=== PATIENT | female | born 1990 | race Caucasian/White ===

== ENCOUNTER 2017-12-23 09:24 | Day surgery (SDC) | payer BC ==
[2017-12-19 12:17] VITALS: BMI 25.0
[2017-12-23] MEDS ORDERED: LIDOCAINE HCL/PF 2% SDV 5ML VIAL ONE (10:51)
[2017-12-23] MEDS ORDERED: KETOROLAC TROMETHAMINE 30 MG/1 ML VIAL ONE (10:51)
[2017-12-23] MEDS ORDERED: MIDAZOLAM HCL 2 MG/2 ML SINGLE DOSE VIAL ONE (10:51)
[2017-12-23] MEDS ORDERED: PROPOFOL 20 ML ONE ×2 (10:51)
[2017-12-23] MEDS ORDERED: ACETAMINOPHEN 1000 MG/100 ML VIAL (NON FORMULARY) IVPB ONE (11:00)
[2017-12-23] MEDS ORDERED: oxyCODONE HCL 5 MG TABLET PO PRN ×2 (11:00→12:34)
[2017-12-23] MEDS ORDERED: LACTATED RINGERS SOLUTION 1,000 ML IV SCH (11:00)
[2017-12-23] MEDS ORDERED: ONDANSETRON 4 MG/2 ML VIAL IVPUSH PRN ×2 (11:00→12:34)
[2017-12-23] MEDS ORDERED: DEXAMETHASONE SOD PHOSPHATE 4 MG/1 ML VIAL ONE (11:38)
[2017-12-23] MEDS ORDERED: ceFAZolin SODIUM 1 GM VIAL ONE (12:13)
[2017-12-23] MEDS ORDERED: ceFAZolin SODIUM 1 GM VIAL IVPB ONE (12:16)
--- NOTE | 2017-12-23 12:29 | HP ---
History & Physical Update - History History: No Change - Physical Physical: No Change - Assessment Assessment: No Change - Plan Plan: No Change (Consent signed and witnessed)
[2017-12-23] MEDS ORDERED: IBUPROFEN 600 MG TABLET (FP) PO PRN (12:34)
[2017-12-23] MEDS ORDERED: IBUPROFEN 800 MG/8 ML IJ IVPB PRN (12:34)
--- NOTE | 2017-12-23 12:34 | OP ---
Operative Note - Note: Operative Date: 12/23/17 Pre-Operative Diagnosis: 27yo P0 with Menometrorrhagia, uterine polyp Operation: Hysteroscopy, Polypectomy, D&C Findings: 1.2cm anterior wall polyp 2.Several small posterior wall polyps Post-Operative Diagnosis: Other (multipile endometrial polyps) Surgeon: Mirna Haney Anesthesiologist/DOOR FURRING INSTALLER: Briseida López Specimens Removed: 1. Multiple endometrial polyps. 2. Urine sent for UA culture Estimated Blood Loss (mls): 10 Instrument used (Debridements only): TruClear insizer Drains & Tubes with Location: 990 cc Fluid defficit Drains, Volume Out (mls): 50 (Urine sent for culture) Fluid Volume Replaced (mls): 500 Operative Report Dictated: Yes
[2017-12-23] MEDS ORDERED: ELECTROLYTE-148 SOLN 1,000 ML IV SCH (12:45)
[2017-12-23] MEDS ORDERED: ACETAMINOPHEN INJECTION 100 ML IVPB ONE (12:55)
[2017-12-23 14:25] VITALS: TEMP 97.8
[2017-12-23 14:47] VITALS: BP 114/75; PULSE 60
--- NOTE | 2017-12-24 08:17 | OP ---
DATE OF OPERATION: 12/23/2017 PREOPERATIVE DIAGNOSIS: A 27-year-old para 0 with menometrorrhagia and uterine polyp on the sonogram. POSTOPERATIVE DIAGNOSES: A 27-year-old para 0 with menometrorrhagia and uterine polyp on the sonogram plus multiple endometrial polyps. OPERATION: Hysteroscopy, multiple polypectomy and gentle dilatation and curettage. FINDINGS: A 2-cm anterior wall polyp and second several small posterior wall polyps. SURGEON: Lissa Sandhu MD ANESTHESIOLOGIST: Briseida López MD ANESTHESIA: MAC. SPECIMENS REMOVED: Multiple endometrial polyps and urine sent for urine culture. DESCRIPTION OF THE OPERATIVE PROCEDURE: After assuring informed consent, patient was brought to the operating room where she was placed in dorsal lithotomy position. Perineum was prepped and draped in sterile fashion. Urine 50 mL was drained, found to be cloudy and odorous and was sent for urine culture. The TRUCLEAR hysteroscope, 5 mm, was calibrated and white balanced and primed. The anterior lip of the cervix was visualized by using Coon retractors and grasped with single-tooth tenaculum. Cervix was dilated without any difficulty with gradually increasing in size DeLee dilators up to the gauge 19. A 5-mm hysteroscope was introduced into the uterus. The lower uterine segment anterior wall 2-cm polyp, irregularly shaped, was visualized and posterior wall several smaller polyps were visualized as well. The TRUCLEAR smallest resectoscope device was introduced through the port and the calibrated window locked and used to resect all the intrauterine polyps. Cavity was found to be empty. Bilateral tubal ostia were visualized and normal-appearing cavity was visualized as well. All instruments subsequently were removed from the uterus and the vagina. All sponge and instrument counts were correct x2. Instrument used was TRUCLEAR incisor. Estimated blood loss was 10 mL. Patient received 500 mL of fluid. Fluid deficit was 990 mL and urine output 50 mL. Patient tolerated procedure well, was extubated and brought to the recovery room in stable condition. LISSA SANDHU M.D. [id number]
--- NOTE | 2017-12-24 12:25 | PATH ---
Surgical Pathology Report Patient Name: CANDICE NEGRON [facility]. Rec. #: [id number] /Age/Gender: 1990 (Age: 27) / F Account: [id number] Location: [facility] SURGICAL Taken: 12/23/2017 Received: 12/23/2017 Reported: 12/24/2017 Physicians: Mirna Haney M.D. Specimen(s) Received A: ENDOMETRIAL CURETTINGS B: ENDOMETRIAL POLYP Clinical History Multiple uterine polyps Final Diagnosis A. ENDOMETRIAL CURETTINGS, DILATION AND CURETTAGE: SECRETORY ENDOMETRIUM, LOWER UTERINE SEGMENT AND BENIGN ENDOCERVICAL TISSUE. B. UTERINE POLYPS, POLYPECTOMY: FRAGMENTS OF ENDOMETRIAL POLYP AND SECRETORY ENDOMETRIUM. Electronically Signed Melissa Willis M.D. Gross Description A. Received in formalin labeled "endometrial curettings," is a 1.6 x 1.0 x 0.2 cm aggregate of olivarez-pink soft tissue fragments. The specimen is entirely submitted in one cassette. B. Received in formalin labeled "uterine polyps," is a 4.0 x 2.5 x 0.4 cm aggregate of olivarez-pink soft tissue fragments. The formalin is filtered and the specimen is entirely submitted in 3 cassettes. 12/23/201712/23/2017
== END 2017-12-23 14:40 | disposition home or self-care (01) ==
LOC: JASU-SURG 09:24
PROVIDERS: ATTEND Obstetrics & Gynecology
PROC: 0UB98ZX Excision of Uterus, Via Natural or Artificial Opening Endoscopic, Diagnostic (ICD-10-PCS; principal; 2017-12-23 11:00)
PROC: 0UDB7ZX Extraction of Endometrium, Via Natural or Artificial Opening, Diagnostic (ICD-10-PCS; 2017-12-23 11:00)
DX: N92.1 Excessive and frequent menstruation with irregular cycle (principal); N84.0 Polyp of corpus uteri
CPT/HCPCS: 84703; 87086; 88305-TC; 94760